=== PATIENT | female | born 1975 | race Caucasian/White ===

== ENCOUNTER 2017-02-28 09:01 | Inpatient (IN) | payer MEDICAID ==
[~2017-02-28] VITALS: Ht 167.6 cm; Wt 90.1 kg
[2017-02-28] MEDS ORDERED: OXYTOCIN 30U/ 0.9% NaCL 500ML 500 ML IV SCH (10:31)
[2017-02-28] MEDS ORDERED: LACTATED RINGERS 1,000 ML IV SCH (10:31)
[2017-02-28] MEDS ORDERED: PREN1TAB60 PO (10:34)
[2017-02-28 10:57] VITALS: BP 117/75
[2017-02-28] MEDS: PLEASE ENTER HEIGHT AND WEIGHT MC SCH ×2 (11:00→19:00)
[2017-02-28] MEDS ORDERED: SODIUM CITRATE/CITRIC ACID 30 ML UDC PO ONE (11:00)
[2017-02-28] MEDS ORDERED: METOCLOPRAMIDE 5 MG/ML, 2ML IV ONE (11:00)
[2017-02-28] MEDS ORDERED: LACTATED RINGERS 1,000 ML IVBOLUS ONE (11:00)
[2017-02-28] MEDS ORDERED: METOCLOPRAMIDE 5 MG/ML, 2ML ONE ×2 (11:34→12:20)
[2017-02-28] MEDS ORDERED: SODIUM CITRATE/CITRIC ACID 30 ML UDC ONE (11:34)
[2017-02-28] MEDS ORDERED: OXYTOCIN 30U/ 0.9% NaCL 500ML 500 ML ONE (11:35)
[2017-02-28] MEDS ORDERED: NEWBORN KIT ONE (11:35)
[2017-02-28] MEDS ORDERED: KETOROLAC 30 MG/1 ML ONE (12:20)
[2017-02-28] MEDS ORDERED: CEFAZOLIN 1,000 MG ONE (12:20)
[2017-02-28] MEDS ORDERED: OXYTOCIN 10 UNITS/ML, 1ML ONE (12:20)
[2017-02-28] MEDS ORDERED: EPHEDRINE 50 MG/ML, 1ML ONE (12:20)
[2017-02-28] MEDS ORDERED: FENTANYL PF 100 MCG/2ML ONE (13:22)
[2017-02-28] MEDS: LACTATED RINGERS 1,000 ML IV SCH ×4 (13:40→23:40)
[2017-02-28] MEDS: OXYTOCIN 30U/ 0.9% NaCL 500ML 500 ML IV SCH ×2 (13:40→23:40)
[2017-02-28] MEDS ORDERED: CALCIUM CARBONATE 500 MG TAB.CHEW PO PRN (14:00)
[2017-02-28] MEDS ORDERED: METOCLOPRAMIDE 5 MG/ML, 2ML IV PRN (14:00)
[2017-02-28] MEDS ORDERED: SIMETHICONE 80 MG CHEW TAB PO PRN (14:00)
[2017-02-28] MEDS ORDERED: ONDANSETRON 2MG/ML, 2ML IV PRN (14:00)
[2017-02-28] MEDS ORDERED: ACETAMINOPHEN 325 MG TABLET PO PRN (14:00)
[2017-02-28] MEDS ORDERED: morphine SULFATE 10 MG/ML, 1ML IVPush PRN (14:30)
[2017-02-28] MEDS ORDERED: OXYcodone 5 MG/5 ML ORAL.SOL UDC PO ONE (14:30)
[2017-02-28] MEDS ORDERED: OXYcodone 5 MG/5 ML ORAL.SOL UDC ONE (14:54)
[2017-02-28 15:35] VITALS: BP 118/57
[2017-02-28 16:30] VITALS: BP 112/59
[2017-02-28 20:00] VITALS: BP 111/58
[2017-02-28] MEDS: KETOROLAC 30 MG/1 ML IV SCH (20:08)
[2017-02-28] MEDS ORDERED: DIPH,PERTUSS(ACELL),TET VAC/PF NC IM-VACC ONE (20:48)
[2017-03-01 00:12] VITALS: BP 110/61
[2017-03-01] MEDS: KETOROLAC 30 MG/1 ML IV SCH ×4 (02:18→21:16)
[2017-03-01] MEDS: LACTATED RINGERS 1,000 ML IV SCH ×3 (02:29→13:40)
[2017-03-01] MEDS: OXYcodone/APAP 5/325MG TABLET PO PRN ×4 (03:36→21:16)
[2017-03-01 04:15] VITALS: BP 115/66
[2017-03-01] MEDS: PRENATAL VIT/IRON/FA 1 EACH TABLET PO SCH (08:19)
[2017-03-01] MEDS: DOCUSATE 100 MG CAPSULE PO PRN ×2 (08:19→21:16)
[2017-03-01 08:45] VITALS: BP 110/68
[2017-03-01] MEDS: OXYTOCIN 30U/ 0.9% NaCL 500ML 500 ML IV SCH (09:40)
[2017-03-01] MEDS ORDERED: DIPH,PERTUSS(ACELL),TET VAC/PF NC IM-VACC ONE (12:13)
[2017-03-01] MEDS ORDERED: FERROUS GLUCONATE 324 MG TABLET PO SCH (17:00)
[2017-03-01 20:00] VITALS: BP 109/71
[2017-03-02] MEDS: KETOROLAC 30 MG/1 ML IV SCH (01:30)
[2017-03-02] MEDS: OXYcodone/APAP 5/325MG TABLET PO PRN ×3 (03:27→15:49)
[2017-03-02] MEDS: IBUPROFEN 600 MG TABLET PO PRN ×2 (03:38→14:20)
[2017-03-02 07:10] VITALS: BP 102/64
[2017-03-02] MEDS: PRENATAL VIT/IRON/FA 1 EACH TABLET PO SCH (08:37)
[2017-03-02] MEDS: DOCUSATE 100 MG CAPSULE PO PRN (08:37)
[2017-03-02] MEDS ORDERED: CALCIUM CARBONATE 500 MG TAB.CHEW ONE (10:30)
[2017-03-02] MEDS ORDERED: IBUPROFEN 600 MG TABLET PO PRN (14:00)
[2017-03-02] MEDS ORDERED: DOCU-30 PO (15:11)
[2017-03-02] MEDS ORDERED: OXYC-302 PO (15:13)
[2017-03-02] MEDS ORDERED: IBUP-1222 PO (15:15)
== END 2017-03-02 17:14 | disposition home or self-care (01) | DRG 766 ==
LOC: LDIP 10:19 → 2NW 15:44
PROVIDERS: ADMIT Obstetrics & Gynecology; ATTEND Obstetrics & Gynecology
PROC: 10D00Z1 Extraction of Products of Conception, Low, Open Approach (ICD-10-PCS; principal; 2017-02-28)
DX: O32.1XX0 Maternal care for breech presentation, not applicable or unspecified (principal); O99.334 Smoking (tobacco) complicating childbirth; F17.210 Nicotine dependence, cigarettes, uncomplicated; F32.9 Major depressive disorder, single episode, unspecified; O99.344 Other mental disorders complicating childbirth; O99.72 Diseases of the skin and subcutaneous tissue complicating childbirth; L40.9 Psoriasis, unspecified; Z37.0 Single live birth; Z3A.39 39 weeks gestation of pregnancy; Z80.41 Family history of malignant neoplasm of ovary; Z90.49 Acquired absence of other specified parts of digestive tract; Z91.011 Allergy to milk products; Z88.8 Allergy status to other drugs, medicaments and biological substances; Z91.018 Allergy to other foods
CPT/HCPCS: 36415; 85025; 86850; 86900; 90715; J0690; J1885; J3010; J2590; J2765; J7120